=== PATIENT | female | born 1950 | race Caucasian/White ===

== ENCOUNTER → 2016-11-27 | Outpatient (CLI) | payer OTHER ==
[~2016-11-27] MED LIST: ACETAMINOPHEN-1 EAC1 PO; ACETAMINOPHEN325 M1 PO; AMBIEN 10 MG TA10 MG PO; BAYER CHEWABLE81 MG PO; BENTYL 10 MG CA10 MG PO; BUDEPRION SR150 MG PO; CIPROFLOXACIN500 M1 PO; COLACE100 MG PO; CYCLOBENZAPRINE5 MG PO; DILTIAZEM CD PO; DIPHENHYDRAMINE25 M3 PO; FIBER0.52 G1 PO; FIBER350 GM PO; FLAGYL500 MG PO; FLECAINIDE ACET50 M1 PO; HYDROCODON-ACE1 EAC7 PO; LOVASTAT20 PO; OMEPRAZOLE40 MG PO; PERCOCET 5-3251 EACH PO; PROAIR HFA8.5 GM INH; STOOL SOFTENER50 MG PO; TUMS PO
== END ==
LOC: RAD 09:49
DX: R91.1 Solitary pulmonary nodule (principal)